=== PATIENT | male | born 1975 | race Caucasian/White ===

== ENCOUNTER 2021-03-12 08:04 | Emergency (ER) | payer OTHER, SELFPAY ==
[2021-03-12 08:20] VITALS: BP 134/88; PULSE 78; RESP 16; TEMP 36.4; O2SAT 98
--- NOTE | 2021-03-12 08:53 | ED.LOWEXIN ---
HPI - Extremity Injury (Lower) General Chief Complaint: Extremity Injury, Lower Stated Complaint: knee injury Time Seen by Provider: 03/12/21 08:56 Source: patient and RN notes reviewed Mode of arrival: ambulatory Limitations: no limitations History of Present Illness HPI Narrative: Patient presents today complaining of left knee pain x2 weeks. He recently started walking for exercise over the past 10 to 14 days and has intermittent sharp pains in the medial knee. Denies numbness or tingling in the leg or foot. Pain increases with any twisting or moving the knee from side to side. He is currently pain-free at rest. He has tried some ibuprofen without relief. MD complaint: knee injury Related Data Allergies Allergy/AdvReac Type Severity Reaction Status Date / Time No Known Allergies Allergy Verified 12/21/20 12:20 Review of Systems Review of Systems: Narrative: CONSTITUTIONAL: Denies body aches, fever, chills, or sweats. EYES: Denies visual changes, redness, or discharge. ENT: Denies rhinorrhea, congestion, sore throat, or otalgia. CARDIOVASCULAR: Denies chest pain, palpitations, or edema. RESPIRATORY: Denies cough or dyspnea. GASTROINTESTINAL: Denies abdominal pain, nausea, vomiting, or diarrhea. GENITOURINARY: Denies dysuria or hematuria. SKIN: Denies rash, itching, or wounds. MUSCULOSKELETAL: Denies back pain, or myalgia. + Left knee pain NEUROLOGIC: Denies headache, numbness, tingling, or weakness. PSYCH: Denies depression or anxiety. [facility] Past Medical History Medical History Hypertension Morbid obesity Obesity PETER (obstructive sleep apnea) Surgical History Surgical History H/O shoulder surgery Hx of cholecystectomy Hx of tonsillectomy Family History Family History Mother Family history of malignant neoplasm of breast Other Depression Diabetes mellitus Family history of coronary artery disease Family history of malignant neoplasm of breast in first degree relative Hypertension Social History Social History Alcohol intake: never Substance use: never Gender identity (if verbalized by the patient): Male Comments At time of signature, I have reviewed and agree with nursing past medical, surgical, social and family history unless otherwise noted. Please see nursing chart for further information. There is no relevant family history pertinent to the presenting complaint Exam Narrative: Exam Narrative: GENERAL: Well-appearing, over-nourished, and in no acute distress. HEAD: Normocephalic, atraumatic. EYES: EOMI. No redness or drainage. Conjunctivae normal. ENT: Mucous membranes pink and moist. NECK: Normal AROM. CHEST: No respiratory distress. EXTREMITIES: Left knee: Tenderness to the medial joint line. No edema noted. No erythema, warmth, ecchymosis. Patient has full range of motion with increased pain medially. Distal sensation intact. Capillary refill normal. Posterior tibial pulse normal. SKIN: Warm, dry, no rash. Capillary refill normal. Normal skin turgor. NEURO: No focal deficits. Alert and oriented x3. Gait steady. PSYCH: Normal affect. No signs of depression or anxiety. Course Vital Signs Vital signs: Vital Signs Temperature 97.5 F L 03/12/21 08:20 Pulse Rate 78 03/12/21 08:20 Respiratory Rate 16 03/12/21 08:20 Blood Pressure 134/88 03/12/21 08:20 Pulse Oximetry 98 03/12/21 08:20 Temperature 97.5 F L 03/12/21 08:20 Pulse Rate 78 03/12/21 08:20 Respiratory Rate 16 03/12/21 08:20 Blood Pressure 134/88 03/12/21 08:20 Pulse Oximetry 98 03/12/21 08:20 Reviewed. Pt has been instructed to follow up with his PCP regarding his elevated blood pressure today. MDM - Extremity Injury (Lower) Differential D
== END 2021-03-12 08:58 | disposition home or self-care (01) ==
PROVIDERS: Emergency Provider Nurse Practitioner; PCP Family Medicine
DX: M25.562 Pain in left knee (principal); G47.33 Obstructive sleep apnea (adult) (pediatric); I10 Essential (primary) hypertension; E66.01 Morbid (severe) obesity due to excess calories; Z68.44 Body mass index [BMI] 60.0-69.9, adult
CPT/HCPCS: 99213; G0463

== ENCOUNTER → 2021-04-04 10:48 | Outpatient (CLI) | payer OTHER, SELFPAY ==
--- NOTE | ~2021-04-04 | XR_ITS ---
XR knee LT min 4V 04/04/2021 11:27 Indication: Left knee pain Procedure: 4 views left knee Comparison: No prior studies for comparison. Findings: No fracture, subluxation or dislocation. No joint effusion. No focal soft tissue abnormalit y. Mild osteoarthritis. Impression: 1: Mild osteoarthritis of the left knee. Reviewed, dictated and finalized at location B. Impression: 1: Mild osteoarthritis of the left knee.
== END ==
PROVIDERS: PCP Family Medicine; Visit Provider Physician Assistant
DX: M17.12 Unilateral primary osteoarthritis, left knee (principal)
CPT/HCPCS: 73564

== ENCOUNTER 2021-07-10 10:22 | Emergency (ER) | payer OTHER, SELFPAY ==
[2021-07-10] VITALS (21 sets, daily range): BP systolic 124–145; BP diastolic 65–83; PULSE 58–88; RESP 9–24; TEMP 36.8; O2SAT 93–100
--- NOTE | ~2021-07-10 | XR_ITS ---
XR chest 2V DATE: 07/10/2021 10:44 INDICATION: Left chest pain TECHNIQUE: PA and lateral views COMPARISON: None FINDINGS: Normal heart size. No hilar or mediastinal enlargement. There is mild elevation of the right leaf of the diaphragm. No pulmonary infiltrate or consolidation, pleural effusion or pulmonary vascular congestion or pneumo thorax is detected. Mild dextroscoliosis and degenerative spurring of the thoracic spine. Surgical clips are suggested overlying the anterior upper abdomen on the lateral view, suggesting pos sible cholecystectomy. IMPRESSION: No active cardiopulmonary disease Reviewed, dictated and finalized at location B.
--- NOTE | 2021-07-10 10:30 | ECG_ITS ---
Measurements Intervals [employer] Rate: 54 P: 9 ND: 143 QRS: -1 QRSD: 110 T: 8 QT: 430 QTc: 409 Interpretive Statements SINUS BRADYCARDIA BASELINE ARTIFACT- I, II, AVR, AVL, AVF, V1-V6 BORDERLINE ECG Electronically Signed On 07-10-2021 11:36:09 CDT by Nasim Villafuerte D.O.
[2021-07-10 10:42] LABS: Basophils Absolute Auto 0.1 K/mm3 (0.0-0.1); Basophils Percent Auto 0.7 % (0.2-1.2); Eosinophils Absolute Auto 0.2 K/mm3 (0-0.3); Eosinophils Percent Auto 2.6 % (0-4.4); Hematocrit 41.3 % (42.0-52.0); Hemoglobin 13.8 g/dL (14.0-18.0); Immature Granulocyte Absolute 0.04 K/mm3 (0.00-0.031); Immature Granulocyte Percent A 0.5 % (0-0.5); Lymphocytes Absolute Auto 2.28 K/mm3 (0.9-3.2); Lymphocytes Percent Auto 30.2 % (18.3-44.2); Mean Corpuscular HGB Conc 33.4 g/dl (32-36); Mean Corpuscular Hemoglobin 30.8 pg (26-34); Mean Corpuscular Volume 92.2 fl (80-100); Mean Platelet Volume 8.9 fl (7.4-10.4); Monocytes Absolute Auto 0.8 K/mm3 (0.1-0.6); Monocytes Percent Auto 10.3 % (2.6-8.5); Neutrophils Absolute Auto 4.2 K/mm3 (1.3-6.7); Neutrophils Percent Auto 55.7 % (45.5-73.1); Platelet Count Result 318 k/mm3 (150-375); Red Blood Count 4.48 M/mm3 (4.6-6.20); Red Cell Distribution Width 12.8 % (11.5-14.5); White Blood Count 7.6 K/mm3 (4.5-10.0)
--- NOTE | 2021-07-10 10:51 | ED.GENADULT ---
HPI - General Adult General Chief complaint: Chest Pain Stated complaint: intermittent cp Time Seen by Provider: 07/10/21 10:28 Source: RN notes reviewed History of Present Illness HPI narrative: Patient presents emergency room from home for chest pain. Patient states the pain is located over the left side of the chest chest described as sharp and stabbing and is brief lasting approximately 1 second and then immediately resolves. States he has had 3 episodes since awaking at 530 this morning as well as 2 episodes last night he denies any fevers or chills shortness of breath abdominal pain nausea vomiting. Denies any previous cardiac history. States the pain does not radiate Related Data Allergies Allergy/AdvReac Type Severity Reaction Status Date / Time No Known Allergies Allergy Verified 07/10/21 10:33 Review of Systems Review of Systems: Gen.: Denies fevers or chills ENT: Denies congestion Respiratory: Denies shortness of breath or cough CV: See HPI GI: Denies abdominal pain nausea, emesis or diarrhea Musculoskeletal: Denies back pain or muscle pain Neuro: Denies numbness, tingling, weakness or focal weakness Skin: Denies rash Except as documented, all other systems reviewed and negative [facility] Past Medical History Medical History Hypertension Morbid obesity Obesity PETER (obstructive sleep apnea) Surgical History Surgical History H/O shoulder surgery Hx of cholecystectomy Hx of tonsillectomy Family History Family History Mother Family history of malignant neoplasm of breast Other Depression Diabetes mellitus Family history of coronary artery disease Family history of malignant neoplasm of breast in first degree relative Hypertension Social History Social History Alcohol intake: never Substance use: never Gender identity (if verbalized by the patient): Male Sexual Orientation (if Verbalized by the Patient): Straight or Heterosexual Exam Narrative: APPEARANCE: No acute distress, nontoxic, resting in bed EYES: EOMI HEENT: Normocephalic, atraumatic, OMM RESPIRATORY: No respiratory distress Clear to auscultation bilaterally with no rhonchi wheezing or rales. CARDIOVASCULAR: Regular rate and rhythm without murmurs rubs or gallops. ABDOMINAL: Soft, nontender, nondistended, no rebound or guarding MUSCULOSKELETAl: Moves all extremities. No clubbing, cyanosis or edema. NEURO: Awake and alert. Following commands, speech normal, no focal deficits SKIN:: Warm, dry. No rashes lesions or abrasions PSYCHIATRIC: Normal affect/mood, Course Course Emergency Course: Called and discussed with Dr. Mar presentation work-up Discussed with patient results of workup and diagnosis. Discussed need for follow-up with primary care, proper use of medication, and reasons to return to the emergency department. Patient understands and agrees to current treatment plan Vital Signs Vital signs: Vital Signs Temperature 98.2 F 07/10/21 10:30 Pulse Rate 58 L 07/10/21 10:30 Respiratory Rate 16 07/10/21 10:30 Blood Pressure 145/65 H 07/10/21 10:30 Pulse Oximetry 100 07/10/21 10:30 Temperature 98.2 F 07/10/21 10:30 Pulse Rate 68 07/10/21 12:35 Respiratory Rate 17 07/10/21 12:02 Blood Pressure 125/81 07/10/21 12:01 Pulse Oximetry 98 07/10/21 12:02 Medical Decision Making MDM Narrative Medical decision making narrative: Patient's EKGs and labs are without significant high risk changes. Cardiac risk factors reviewed. Patient is felt likely low risk for ACS and reasonable for further risk stratification testing as an outpatient. Pain was not sudden or maximal in onset without tearing or ripping quality. No other signs of symptoms suggest aortic dissection. A low-risk W
[2021-07-10] MEDS: ASPIRIN 81 MG CHEWABLE TABLET 324 MG PO (10:52)
[2021-07-10 10:54] LABS: Anion Gap 4 mmol/L (8-16); Blood Urea Nitrogen 11 mg/dL (9-20); Calcium 9.4 mg/dL (8.4-10.2); Carbon Dioxide 31 mmol/L (22-30); Chloride 104 mmol/L (98-107); Estimated CRCL calculation 161 ml/min; Estimated Glomerular Filt Rate > 60; Glucose 102 mg/dL (65-110); Sodium 139 mmol/L (137-145)
[2021-07-10 10:59] LABS: INR 0.9; Partial Thromboplastin Time 25.1 SECONDS (22.3-36.8); Prothrombin Time 11.7 Seconds (11.1-14.7)
[2021-07-10 11:06] LABS: Troponin I < 0.012 ng/mL (0.000-0.034)
[2021-07-10 13:43] LABS: Troponin I < 0.012 ng/mL (0.000-0.034)
== END 2021-07-10 14:03 | disposition home or self-care (01) ==
PROVIDERS: Emergency Provider Emergency Medicine; PCP Family Medicine
DX: R07.89 Other chest pain (principal); I10 Essential (primary) hypertension; G47.33 Obstructive sleep apnea (adult) (pediatric); E66.01 Morbid (severe) obesity due to excess calories; Z68.44 Body mass index [BMI] 60.0-69.9, adult; R00.1 Bradycardia, unspecified
CPT/HCPCS: 36415; 71046; 80048; 84484; 85025; 85610; 85730; 93005; 99284; A9270

== ENCOUNTER 2022-01-13 06:44 | Emergency (ER) | payer OTHER, SELFPAY ==
--- NOTE | ~2022-01-13 | CT_ITS ---
EXAMINATION: CT abdomen pelvis wo con DATE: 01/13/2022 07:17 INDICATION: Left flank pain. TECHNIQUE: Computed tomography (CT) of the abdomen and pelvis was performed without intravenous contr ast. Automated exposure control and iterative reconstruction technique were employed. The dose-length product was 1692.82 mGy-cm. COMPARISON: CT abdomen and pelvis 05/30/2019 FINDINGS: The visualized portions of the lung bases are clear without pneumonia or pleural effusion. The heart size is normal. No pericardial effusion. There is diffuse hepatic steatosis. There are alarcon ges of cholecystectomy. The spleen, pancreas, adrenal glands, and kidneys are normal. There is a 3 mm stone in proximal left ureter. There is a left inguinal hernia containing fat. There are no dilated loops of bowel. The appendix is normal. There are no pathologically enlarged lymph nodes. There is no free intraperitoneal fluid. There is a supraumbilical ventral hernia containing fat. There is mild t horacolumbar spondylosis. There is mild chronic anterior wedging of T12 vertebral body. IMPRESSION: 1. 3 mm stone in proximal left ureter. No hydronephrosis. 2. Left inguinal hernia containing fat. Supraumbilical ventral hernia containing fat. Reviewed, dictated and finalized at location A. IMPRESSION: 1. 3 mm stone in proximal left ureter. No hydronephrosis. 2. Left inguinal hernia containing fat. Supraumbilical ventral hernia containin g fat.
[2022-01-13 06:54] VITALS: BP 137/78; PULSE 71; RESP 20; TEMP 36.4; O2SAT 93
--- NOTE | 2022-01-13 07:04 | ED.ABDPAIN ---
HPI - Abdominal Pain General Chief Complaint: Urogenital-Male Stated Complaint: Flank pain Time Seen by Provider: 01/13/22 06:53 Source: patient Mode of arrival: ambulatory Limitations: no limitations History of Present Illness HPI narrative: 46-year-old male presents emergency room secondary to sudden onset of left flank pain that woke him up from sleep. He never had pain like this before. He states the pain seemed to be somewhat intermittent in nature. The pain seems to be radiating now more towards the left lower side of his abdomen. Denies any history of kidney stones before. He does have a history of gallbladder disease and had his gallbladder taken out he states this pain reminds him of that type of pain. He states he feels like he needs to have a bowel movement but has not been able to have a bowel movement. Denies any associated chills or fevers. Denies any urinary complaints. No pain with movement. Patient is extremely obese and is lost 50 pounds and still weighs 470. Related Data Allergies Allergy/AdvReac Type Severity Reaction Status Date / Time No Known Allergies Allergy Verified 07/10/21 10:33 Review of Systems Review of Systems: CONSTITUTIONAL: Denies fever, chills, or sweats. EYES: Denies visual changes, redness, or discharge. ENT: Denies rhinorrhea, congestion, sore throat, or otalgia. CARDIOVASCULAR: Denies chest pain, palpitations, or edema. RESPIRATORY: Denies cough or dyspnea. GASTROINTESTINAL: Patient having abdominal pain on the left flank and left lower quadrant noted. Get some nausea and had one episode of vomiting. No diarrhea.. GENITOURINARY: Denies dysuria or hematuria. SKIN: Denies rash or itching. MUSCULOSKELETAL: Denies back pain, joint pain, or myalgia. NEUROLOGIC: Denies headache, numbness, or weakness. PSYCHIATRIC: Denies anxiety or depression. [facility] Past Medical History Medical History Hypertension Morbid obesity Obesity PETER (obstructive sleep apnea) Surgical History Surgical History H/O shoulder surgery Hx of cholecystectomy Hx of tonsillectomy Family History Family History Mother Family history of malignant neoplasm of breast Other Depression Diabetes mellitus Family history of coronary artery disease Family history of malignant neoplasm of breast in first degree relative Hypertension Social History Social History Alcohol intake: never Substance use: never Gender identity (if verbalized by the patient): Male Sexual Orientation (if Verbalized by the Patient): Straight or Heterosexual Exam Narrative: APPEARANCE: Well appearing, no pain or distress, well-nourished. Obese Head normocephalic and atraumatic. EYES: PERRLA/EOMI, conjunctivae very clear. NOSE: Normal with no drainage EARS:TMS clear Farhat Cid, with good light reflex. THROAT: Pharynx clear, no exudate. NECK: Supple. No adenopathy, no masses. RESPIRATORY: Airway patent, respirations nonlabored. Clear to auscultation bilaterally, no rales, rhonchi, wheezing. CARDIOVASCULAR: Regular rate and rhythm without murmurs, rubs, or gallops. ABDOMINAL: Soft, nontender, nondistended, no hepatosplenomegaly Musculoskeletal: Moves all extremities. Strength/ROM intact, No edema, No calf tenderness. NEURO: Alert. Cranial nerves II through XII intact. Normal gait. Good coordination. Nonfocal examination. SKIN:: Warm, dry. Normal Color PSYCHIATRIC: Normal affect/mood, normal interaction Course Course Emergency Course: Patient's presentation is consistent with a kidney stone. CT confirms he is got a 3 mm stone on the left side in the proximal ureter. This was all reviewed with the patient and his . Patient is having no significant pain at this time. Patient will be discharged home care. Given
[2022-01-13 07:09] LABS: Basophils Percent Auto 0.4 % (0.2-1.2); Eosinophils Absolute Auto 0.1 K/mm3 (0-0.3); Eosinophils Percent Auto 1.9 % (0-4.4); Hematocrit 43.6 % (42.0-52.0); Immature Granulocyte Absolute 0.02 K/mm3 (0.00-0.031); Immature Granulocyte Percent A 0.3 % (0-0.5); Lymphocytes Percent Auto 31.9 % (18.3-44.2); Mean Corpuscular HGB Conc 32.1 g/dl (32-36); Mean Corpuscular Volume 93.6 fl (80-100); Mean Platelet Volume 9.5 fl (7.4-10.4); Monocytes Absolute Auto 1.2 K/mm3 (0.1-0.6); Monocytes Percent Auto 16.1 % (2.6-8.5); Neutrophils Absolute Auto 3.6 K/mm3 (1.3-6.7); Neutrophils Percent Auto 49.4 % (45.5-73.1); Platelet Count Result 306 k/mm3 (150-375); Red Blood Count 4.66 M/mm3 (4.6-6.20); Red Cell Distribution Width 13.4 % (11.5-14.5); White Blood Count 7.2 K/mm3 (4.5-10.0)
[2022-01-13 07:19] LABS: Alanine Aminotransferase 45 U/L (4-50); Albumin Level 4.4 g/dL (3.5-5.1); Alkaline Phosphatase 53 U/L (38-126); Anion Gap 7 mmol/L (8-16); Aspartate Amino Transferase 39 U/L (17-59); Bilirubin,Total 0.8 mg/dL (0.2-1.3); Blood Urea Nitrogen 11 mg/dL (9-20); Calcium 8.9 mg/dL (8.4-10.2); Carbon Dioxide 31 mmol/L (22-30); Chloride 104 mmol/L (98-107); Estimated CRCL calculation 133 ml/min; Estimated Glomerular Filt Rate > 60; Glucose 124 mg/dL (65-110); Potassium 3.7 mmol/L (3.4-5.0); Sodium 142 mmol/L (137-145)
[2022-01-13] MEDS: KETOROLAC 30 MG/ML VIAL (*BKC) IV PUSH (07:24)
[2022-01-13] MEDS: ONDANSETRON INJ 4 MG/2 ML VIAL IV PUSH (07:24)
[2022-01-13 07:30] VITALS: BP 125/73; PULSE 72; RESP 18; O2SAT 96
[2022-01-13 07:52] LABS: Add Urine Microscopic? YES; Appearance Urine Clear (Clear); Bacteria Urine Trace /hpf; Bilirubin Urine Negative (Negative); Blood Urine 1+ (Negative); Color Urine Yellow (Yellow); Glucose Urine UA Negative (Negative); Ketones Urine Negative (Negative); Leukocyte Esterase Ur Negative LEU/UL (Negative); Mucus Urine Few /lpf; Nitrate Urine Negative (Negative); Protein Urine Negative (Negative); Specific Grav Ur 1.019 (1.001-1.035); Squamous Epithelial Cell Urine Rare /hpf (Few); Urobilinogen Urine Negative mg/dL (<2.0); WBC Urine 0-3 /hpf
== END 2022-01-13 08:29 | disposition home or self-care (01) ==
PROVIDERS: Emergency Provider Emergency Medicine; PCP Family Medicine
DX: N20.0 Calculus of kidney (principal); I10 Essential (primary) hypertension; E66.01 Morbid (severe) obesity due to excess calories; G47.33 Obstructive sleep apnea (adult) (pediatric); Z90.49 Acquired absence of other specified parts of digestive tract; Z90.89 Acquired absence of other organs
CPT/HCPCS: 36415; 74176; 80053; 81001; 85025; 96374; 96375; 99284; J1885; J2405

== ENCOUNTER 2022-02-04 09:56 | Outpatient (CLI) | payer OTHER, SELFPAY ==
--- NOTE | ~2022-02-04 | CT_ITS ---
EXAMINATION: CT abdomen pelvis wo con DATE: 02/04/2022 10:21 INDICATION: Left ureteral stone TECHNIQUE: Computed tomography (CT) of the abdomen and pelvis was performed without intravenous contr ast. The dose-length product (DLP) was 1678.25 mGy-cm. Automated exposure control and iterative recon struction technique were employed. COMPARISON: 01/13/2022 FINDINGS: The lung bases are clear. The heart size is normal. The gallbladder is surgically absent. T he liver, spleen, pancreas, and adrenal glands are normal. The previously described 3 mm left proxima l ureteral stone has migrated to the distal ureter. There is no hydronephrosis or hydroureter. The ri ght kidney is unremarkable. No pathologically enlarged abdominal or pelvic lymph nodes are identified . There is no free intraperitoneal gas or evidence of bowel obstruction. A left inguinal hernia conta ining fat and small supraumbilical hernia containing fat are again noted. A moderate volume of coloni c stool is present. There is mild lumbar spondylosis. IMPRESSION: 1. 3 mm stone in the distal left ureter, migrated from the proximal ureter. No hydronephrosis. Reviewed, dictated and finalized at location F.
== END 2022-02-04 09:57 | disposition home or self-care (01) ==
PROVIDERS: PCP Family Medicine; Visit Provider Urology
DX: N20.1 Calculus of ureter (principal); M47.816 Spondylosis without myelopathy or radiculopathy, lumbar region
CPT/HCPCS: 74176

== ENCOUNTER 2022-02-24 09:32 | Outpatient (CLI) | payer OTHER, SELFPAY ==
--- NOTE | ~2022-02-24 | CT_ITS ---
EXAMINATION: CT abdomen pelvis wo/w con DATE: 02/24/2022 10:20 INDICATION: Ureteral stone TECHNIQUE: Computed tomography (CT) of the chest was performed without and with 130 cc Omnipaque 350 intravenous contrast. The dose-length product was 3199.74 mGy-cm. Automated exposure control and iter ative reconstruction technique were employed. COMPARISON: CT dated 02/04/2022 FINDINGS: Lung bases are unremarkable. No significant pleural or pericardial effusion. Heart size is normal. The liver, spleen, pancreas, adrenal glands and kidneys are unremarkable. There is fatty infiltration of the liver. Status post cholecystectomy. There is a fat-containing supraumbilical hernia. Nonobstr uctive bowel gas pattern. Colonic diverticulosis without evidence for diverticulitis. Interval resolu tion of left ureteral stone. Bladder is decompressed. There is a right pelvic phlebolith. No free air or free fluid. No acute osseous abnormality. IMPRESSION: 1. Interval resolution of distal left ureteral stone. No current renal/ureteral stones are seen. No h ydronephrosis. Reviewed, dictated and finalized at location A. IMPRESSION: 1. Interval resolution of distal left ureteral stone. No current renal/ureteral stones are seen. No hydronephrosis.
[2022-02-24 10:03] LABS: Estimated Glomerular Filt Rate > 60
== END 2022-02-24 09:33 | disposition home or self-care (01) ==
PROVIDERS: PCP Family Medicine; Visit Provider Urology
DX: N20.1 Calculus of ureter (principal); K42.9 Umbilical hernia without obstruction or gangrene
CPT/HCPCS: 74178; Q9967

== ENCOUNTER 2022-07-03 08:56 | Outpatient (CLI) | payer OTHER, SELFPAY ==
--- NOTE | ~2022-07-03 | XR_ITS ---
XR shoulder LT min 2V DATE: 07/03/2022 09:25 INDICATION: Left shoulder pain TECHNIQUE: 4 views COMPARISON: None FINDINGS: A radiopaque fixation device overlies the glenoid process. There is joint space narrowing at the glenohumeral joint consistent with osteoarthritis. No fracture or dislocation, periosteal reaction or bone destruction or abnormal soft tissue calcifica tion is noted. IMPRESSION: Postoperative change of the glenoid process Osteoarthritic change at left glenohumeral joint Reviewed, dictated and finalized at location B.
== END 2022-07-03 08:57 | disposition home or self-care (01) ==
PROVIDERS: PCP Family Medicine; Visit Provider Family Medicine
DX: M25.519 Pain in unspecified shoulder (principal); M19.012 Primary osteoarthritis, left shoulder; Z98.890 Other specified postprocedural states
CPT/HCPCS: 73030

== ENCOUNTER 2022-11-05 16:43 | Outpatient (CLI) | payer BC, SELFPAY ==
--- NOTE | ~2022-11-05 | XR_ITS ---
EXAM: XR lumbar spine min 4V DATE: 11/05/2022 17:31 HISTORY: M54.9 - Dorsalgia, unspecified . COMPARISON: None available. FINDINGS: Cholecystectomy clips. 5 nonrib-bearing lumbar-type vertebral bodies. Pedicles intact. Norm al vertebral body alignment. Vertebral body heights preserved. Mild disc space narrowing at L4-5, the remaining disc spaces are maintained. Normal facets and posterior elements. Incidental note of lower thoracic degenerative disc disease and mild anterior wedge deformity at T12, likely physiologic. No fracture or dislocation. IMPRESSION: Mild degenerative disc disease at L4-5. Reviewed, dictated and finalized at location K. EILLANCE SPECIALIST
--- NOTE | ~2022-11-05 | XR_ITS ---
EXAM: XR thoracic spine 3V DATE: 11/05/2022 17:31 HISTORY: M54.9 - Dorsalgia, unspecified . COMPARISON: None available. FINDINGS: Cholecystectomy clips. Vertebral body alignment intact. Presumed physiologic mild anterior wedge deformity at T12. The remaining body heights are preserved. Multilevel mild disc space narrowin g and marginal osteophytosis, with multilevel small anterior and lateral bridging osteophytes. No tra umatic malalignment or fracture. Visualized lung parenchyma is clear. IMPRESSION: Multilevel degenerative disc disease. Reviewed, dictated and finalized at location K. S TRAINING REPRESENTATIVE
--- NOTE | ~2022-11-05 | XR_ITS ---
EXAM: XR foot RT min 3V DATE: 11/05/2022 17:31 HISTORY: M79.673 - Pain in unspecified foot . COMPARISON: None available. FINDINGS: Normal mineralization. No fracture or dislocation. No lytic or blastic lesion. Mild hallux valgus. Mild degenerative change at the first MTP joint. Small os navicularis. Moderate Achilles and mild plantar enthesopathy No erosion or periosteal change. Soft tissues within normal limits. IMPRESSION: No acute osseous finding in the right foot. Chronic and degenerative findings detailed ab ove. Reviewed, dictated and finalized at location K. NITIES TEACHER IMPRESSION: No acute osseous finding in the right foot. Chronic and degenerativ e findings detailed above.
== END 2022-11-05 16:44 | disposition home or self-care (01) ==
LOC: ANHIMG 16:47
PROVIDERS: PCP Family Medicine; Visit Provider Physician Assistant
DX: M54.9 Dorsalgia, unspecified (principal); M79.673 Pain in unspecified foot; M51.36 Other intervertebral disc degeneration, lumbar region; M51.34 Other intervertebral disc degeneration, thoracic region
CPT/HCPCS: 72072; 72110; 73630

== ENCOUNTER 2023-04-08 21:38 | Emergency (ER) | payer BC, SELFPAY | END 2023-04-08 21:40 | disposition left against medical advice (07) | PROVIDERS: PCP Family Medicine | DX: Z53.21 Procedure and treatment not carried out due to patient leaving prior to being seen by health care provider (principal) | CPT/HCPCS: 99199 ==

== ENCOUNTER 2023-04-14 01:25 | Emergency (ER) | payer OTHER, BC, SELFPAY ==
[2023-04-14 01:29] VITALS: BP 146/84; PULSE 90; RESP 14; TEMP 36.7; O2SAT 96
[2023-04-14] MEDS: methocarbamoL 750 MG TABLET 1500 MG PO (03:39)
[2023-04-14] MEDS: LIDOCAINE 5% PATCH 1 PATCH TRANSDERM (03:40)
[2023-04-14] MEDS: KETOROLAC 30 MG/ML VIAL (*BKC) IM (03:40)
[2023-04-14 03:46] VITALS: PULSE 76; RESP 14; TEMP 36.4; O2SAT 98
--- NOTE | 2023-04-14 03:50 | ED.GENADULT ---
HPI - General Adult General Chief complaint: Back Pain/Injury Stated complaint: back pain Time Seen by Provider: 04/14/23 02:53 History of Present Illness HPI narrative: This is a 48-year-old male with history of chronic back pain presenting with back pain. Patient has been dealing with issues since October of 2022. He is currently in rehab. Patient says that when he was sitting down he started a spasm in the right paralumbar/ thoracic area that is a sharp pain 10 out 10 intensity and worse with movement. This is what his typical back pain presents as. He has taken cyclobenzaprine and Tylenol at home with no relief. He denies fevers trauma known cancer history lower extremity weakness bowel incontinence or urinary retention Related Data Home Medications Medication Instructions Recorded Confirmed ibuprofen 600 mg tablet 600 mg PO TID 03/16/23 03/16/23 Allergies Allergy/AdvReac Type Severity Reaction Status Date / Time No Known Allergies Allergy Verified 03/16/23 16:35 PMFSH Past Medical History Medical History Hypertension Morbid obesity Obesity PETER (obstructive sleep apnea) Surgical History Surgical History H/O shoulder surgery Hx of cholecystectomy Hx of tonsillectomy Family History Family History Mother Family history of malignant neoplasm of breast Other Depression Diabetes mellitus Family history of coronary artery disease Family history of malignant neoplasm of breast in first degree relative Hypertension Social History Social History Smoking status: Never smoker Alcohol intake: never Substance use: never Substance use type: does not use Lack of Transportation: No Lack of Food: Never True Current Housing: I Have Housing Concerned About Future Housing: No Difficulty Paying Gas/Electric Bills: No Difficulty Paying for Meds: No Currently Unemployed: No Education: Master's Degree or Higher Difficulty w/ Childcare or Family Care: No Gender identity (if verbalized by the patient): Male Sexual Orientation (if Verbalized by the Patient): Straight or Heterosexual Exam Narrative: APPEARANCE: No apparent distress. morbidly obese Head: atraumatic. EYES: EOMI, NOSE: Atraumatic NECK: Trachea midline RESPIRATORY: No increased rate of breathing CARDIOVASCULAR: RRR, ABDOMINAL: Non-distended MUSCULOSKELETAl: tenderness palpation in the right parathoracic and paralumbar muscles. no midline tenderness. Patient is able ambulate and get up from a chair without difficulty. NEURO: Alert. Moving 4/4 extremities SKIN:: Warm, dry. Normal color PSYCHIATRIC: Normal affect Course Vital Signs Vital signs: Vital Signs Temperature 98.0 F 04/14/23 01:29 Pulse Rate 90 04/14/23 01:29 Respiratory Rate 14 04/14/23 01:29 Blood Pressure 146/84 H 04/14/23 01:29 Pulse Oximetry 96 04/14/23 01:29 Oxygen Delivery Room Air 04/14/23 01:29 Temperature 98.0 F 04/14/23 01:29 Pulse Rate 90 04/14/23 01:29 Respiratory Rate 14 04/14/23 01:29 Blood Pressure 146/84 H 04/14/23 01:29 Pulse Oximetry 96 04/14/23 01:29 Oxygen Delivery Room Air 04/14/23 01:29 Medical Decision Making [facility] Narrative Medical decision making narrative: -Presentation: 48-year-old morbidly obese male presenting with acute on chronic back pain. No red flags on history and physical. Goal today's visit is pain control. 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
[2023-04-14 04:02] VITALS: BP 128/94; PULSE 78; RESP 15; TEMP 36.7; O2SAT 100
== END 2023-04-14 04:03 | disposition home or self-care (01) ==
PROVIDERS: Emergency Provider Emergency Medicine; PCP Family Medicine
DX: M54.6 Pain in thoracic spine (principal); M54.50 Low back pain, unspecified; G89.29 Other chronic pain; I10 Essential (primary) hypertension; G47.33 Obstructive sleep apnea (adult) (pediatric); E66.01 Morbid (severe) obesity due to excess calories; Z68.44 Body mass index [BMI] 60.0-69.9, adult; Z90.49 Acquired absence of other specified parts of digestive tract
CPT/HCPCS: 96372; 99284; A9270; J1100; J1885

== ENCOUNTER 2023-04-22 15:32 | Outpatient (CLI) | payer OTHER, BC, SELFPAY ==
--- NOTE | ~2023-04-22 | MR_ITS ---
EXAMINATION: MR lumbar spine wo con DATE: 04/22/2023 16:31 INDICATION: Other intervertebral disc degeneration, lumbar region. TECHNIQUE: Magnetic resonance imaging (MRI) of the lumbar spine was performed without intravenous con trast. Sequences included sagittal T2-weighted FSE, sagittal T2-weighted FS FSE, sagittal T1-weighted FSE, and axial T2-weighted FSE. COMPARISON: Lumbar spine radiographs 11/05/2022 FINDINGS: Bone alignment is normal. There is mild chronic anterior wedging of T12 vertebral body. Int ervertebral disc heights are normal. The distal spinal cord signal intensity is normal. The conus med ullaris is at T12-L1. The following disc levels are specifically discussed: L1-L2: The disc does not extend beyond the endplate margin. There is mild bilateral facet joint osteo arthritis. There is no neural foraminal stenosis. There is no central canal stenosis. L2-L3: The disc does not extend beyond the endplate margin. There is mild bilateral facet joint osteo arthritis. There is no neural foraminal stenosis. There is no central canal stenosis. L3-L4: The disc does not extend beyond the endplate margin. There is mild bilateral facet joint osteo arthritis. There is no neural foraminal stenosis. There is no central canal stenosis. L4-L5: The disc does not extend beyond the endplate margin. There is severe bilateral facet joint ost eoarthritis. There is mild right neural foraminal stenosis. There is no central canal stenosis. L5-S1: The disc does not extend beyond the endplate margin. There is moderate bilateral facet joint o steoarthritis. There is no neural foraminal stenosis. There is no central canal stenosis. IMPRESSION: 1. Mild lumbar spondylosis. Reviewed, dictated and finalized at location E. IMPRESSION: 1. Mild lumbar spondylosis.
== END 2023-04-22 15:33 ==
PROVIDERS: PCP Family Medicine; Visit Provider Physical Medicine & Rehabilitation
DX: M51.36 Other intervertebral disc degeneration, lumbar region (principal); M47.816 Spondylosis without myelopathy or radiculopathy, lumbar region
CPT/HCPCS: 72148

== ENCOUNTER 2023-05-13 00:22 | Emergency (ER) | payer OTHER, BC, SELFPAY ==
[2023-05-13 00:27] VITALS: BP 144/85; PULSE 84; RESP 14; TEMP 36.5; O2SAT 98
--- NOTE | 2023-05-13 01:18 | ED.BACK ---
HPI - Back Pain/Injury General Chief Complaint: Back Pain/Injury Stated Complaint: back pain Time Seen by Provider: 05/13/23 00:38 Source: patient and old records reviewed Mode of arrival: ambulatory Limitations: no limitations History of Present Illness HPI Narrative: Patient is a 48 y/o male who presents to the ED with c/o back pain. Patient reports he had a fall in October and sustained an injury to his right lower back. He has had persistent pain since then, with intermittent episodes of flareup/muscle cramping/spasms. Pain typically worse with laying flat. He has been taking cyclobenzaprine, ibuprofen and using a TENS unit. Tonight, patient reports having worsening pain and spasms. He was unable to find any comfortable positions or relief with the topical therapies. He denies any recent injury. Denies any numbness, saddle anesthesia, abdominal pain, nausea, vomiting, fevers, bowel or bladder incontinence, dysuria, hematuria. Related Data Home Medications Medication Instructions Recorded Confirmed ibuprofen 600 mg tablet 600 mg PO TID 03/16/23 04/26/23 Allergies Allergy/AdvReac Type Severity Reaction Status Date / Time No Known Allergies Allergy Verified 04/24/23 10:53 Review of Systems Review of Systems: CONSTITUTIONAL: Denies fever, chills, or sweats. CARDIOVASCULAR: Denies chest pain. RESPIRATORY: Denies dyspnea. GASTROINTESTINAL: Denies incontinence, abdominal pain, nausea, vomiting, or diarrhea. GENITOURINARY: Denies incontinence, dysuria or hematuria. MUSCULOSKELETAL: See HPI. NEUROLOGIC: Denies tingling, numbness, or weakness. All systems reviewed & are unremarkable except as noted in HPI and below PMFSH Past Medical History Medical History Hypertension Morbid obesity Obesity PETER (obstructive sleep apnea) Surgical History Surgical History H/O shoulder surgery Hx of cholecystectomy Hx of tonsillectomy Family History Family History Mother Family history of malignant neoplasm of breast Other Depression Diabetes mellitus Family history of coronary artery disease Family history of malignant neoplasm of breast in first degree relative Hypertension Social History Social History (Reviewed 05/13/23 @ 01:41 by SASHA Lyons Smoking status: Never smoker Alcohol intake: never Substance use: never Substance use type: does not use Lack of Transportation: No Lack of Food: Never True Current Housing: I Have Housing Concerned About Future Housing: No Difficulty Paying Gas/Electric Bills: No Difficulty Paying for Meds: No Currently Unemployed: No Education: Master's Degree or Higher Difficulty w/ Childcare or Family Care: No Gender identity (if verbalized by the patient): Male Sexual Orientation (if Verbalized by the Patient): Straight or Heterosexual Exam Narrative: GENERAL: Well appearing, morbidly obese with BMI of 65.2, non-toxic, in no acute distress. HEAD: Normocephalic, atraumatic. NECK: Supple. No adenopathy, no masses. RESPIRATORY: Airway patent, respirations nonlabored. Clear to auscultation bilaterally, no rales, rhonchi, wheezing. CARDIOVASCULAR: Regular rate and rhythm without murmurs, rubs, or gallops. Peripheral pulses 2+ and equal bilaterally. ABDOMINAL: Soft, nontender, nondistended, no hepatosplenomegaly. Normoactive BS. MUSCULOSKELETAL: Moves all extremities. Strength/ROM intact without gross deformities. No midline lumbar or thoracic spinal tenderness. No bony deformities. Tenderness along right lumbar paraspinal musculature and right low back. Sensation intact. SKIN: Warm, dry, normal color. No rashes. NEURO: A&O X3. Speech clear. Cranial nerves II-XII grossly intact. Steady gait. No ataxic movements. PSYCHIATRIC: Appropriate mood and affect. No
[2023-05-13] MEDS: diazePAM INJ (*CRX) 10 MG/2 ML SYRINGE 2 MG IV PUSH (01:56)
[2023-05-13] MEDS: KETOROLAC 30 MG/ML VIAL (*BKC) IV PUSH (01:56)
[2023-05-13] MEDS: ACETAMINOPHEN 500 MG TABLET 1000 MG PO (01:56)
[2023-05-13 02:17] VITALS: BP 128/78; PULSE 74; RESP 14; O2SAT 94
[2023-05-13 02:19] LABS: Appearance Urine Clear (Clear); Bilirubin Urine Negative (Negative); Blood Urine Negative (Negative); Color Urine Yellow (Yellow); Glucose Urine UA Negative (Negative); Ketones Urine Negative (Negative); Leukocyte Esterase Ur Negative LEU/UL (Negative); Nitrate Urine Negative (Negative); Protein Urine Negative (Negative); Urobilinogen Urine 0.2 mg/dL (<2.0); pH Urine 5.5 (5.0-9.0)
[2023-05-13 02:23] VITALS: BP 128/78; PULSE 78; RESP 18; O2SAT 94
[2023-05-13 02:30] LABS: Add Urine Microscopic? NO
[2023-05-13 02:32] VITALS: BP 130/93; PULSE 78; RESP 19; O2SAT 94
[2023-05-13 02:45] VITALS: PULSE 89; RESP 22; O2SAT 96
== END 2023-05-13 03:30 | disposition home or self-care (01) ==
PROVIDERS: Emergency Provider Physician Assistant; PCP Family Medicine
DX: M54.50 Low back pain, unspecified (principal); G89.29 Other chronic pain; I10 Essential (primary) hypertension; G47.30 Sleep apnea, unspecified
CPT/HCPCS: 81003; 96374; 96375; 99284; A9270; J1100; J1885; J3360

== ENCOUNTER 2023-08-07 12:13 | Outpatient (CLI) | payer BC, SELFPAY ==
[2023-08-07 12:51] LABS: Basophils Absolute Auto 0.1 K/mm3 (0.0-0.1); Basophils Percent Auto 0.9 % (0.2-1.2); Eosinophils Absolute Auto 0.2 K/mm3 (0-0.3); Eosinophils Percent Auto 2.8 % (0-4.4); Hemoglobin 14.3 g/dL (14.0-18.0); Immature Granulocyte Absolute 0.03 K/mm3 (0.00-0.031); Immature Granulocyte Percent A 0.4 % (0-0.5); Lymphocytes Absolute Auto 2.26 K/mm3 (0.9-3.2); Lymphocytes Percent Auto 33.7 % (18.3-44.2); Mean Corpuscular HGB Conc 32.5 g/dl (32-36); Mean Corpuscular Hemoglobin 29.9 pg (26-34); Mean Corpuscular Volume 92.1 fl (80-100); Mean Platelet Volume 9.1 fl (7.4-10.4); Monocytes Absolute Auto 0.6 K/mm3 (0.1-0.6); Monocytes Percent Auto 9.1 % (2.6-8.5); Neutrophils Absolute Auto 3.6 K/mm3 (1.3-6.7); Neutrophils Percent Auto 53.1 % (45.5-73.1); Platelet Count Result 332 k/mm3 (150-375); Red Blood Count 4.78 M/mm3 (4.6-6.20); Red Cell Distribution Width 12.7 % (11.5-14.5); White Blood Count 6.7 K/mm3 (4.5-10.0)
--- NOTE | 2023-08-07 12:55 | ECG_ITS ---
Measurements Intervals [place] Rate: 69 P: 49 [place]: 169 QRS: 1 QRSD: 120 T: 30 QT: 410 QTc: 440 Interpretive Statements SINUS RHYTHM NORMAL ELECTROCARDIOGRAM+ COMPARED TO ECG 07/10/2021 10:35:56 NO SIGNIFICANT CHANGE Electronically Signed On 08-07-2023 15:14:32 CDT by Kennedy Mcgovern M.D.
[2023-08-07 13:02] LABS: Alanine Aminotransferase 35 U/L (6-50); Albumin Level 4.5 g/dL (3.5-5.1); Alkaline Phosphatase 48 U/L (38-126); Anion Gap 5 mmol/L (8-16); Aspartate Amino Transferase 29 U/L (17-59); Bilirubin,Total 0.7 mg/dL (0.2-1.3); Blood Urea Nitrogen 14 mg/dL (9-20); Calcium 9.1 mg/dL (8.4-10.2); Carbon Dioxide 33 mmol/L (22-30); Chloride 101 mmol/L (98-107); Estimated Glomerular Filt Rate > 60; Glucose 100 mg/dL (65-110); Sodium 139 mmol/L (137-145)
[2023-08-07 13:55] LABS: Prostate Specific Antigen 0.3 ng/mL (< OR = 4.0)
[2023-08-10 23:35] LABS: H pylori, Urea Breath NOT DETECTED (NOT DETECTED)
== END 2023-08-07 12:14 | disposition home or self-care (01) ==
LOC: ANHLAB 12:16
PROVIDERS: PCP Family Medicine; Visit Provider Family Medicine
DX: Z12.5 Encounter for screening for malignant neoplasm of prostate (principal); R53.83 Other fatigue; I10 Essential (primary) hypertension; A04.8 Other specified bacterial intestinal infections
CPT/HCPCS: 36415; 80053; 83013; 84153; 84443; 85025; 93005; G0103